=== PATIENT | male | born 1945 ===

== ENCOUNTER 2016-07-22 12:44 | Observation (INO) | payer MEDICARE ==
[2016-07-22 13:26] LABS: BASO % 0.4 % (0.0-2.0); EOS # 0.3 K/uL (0.0-0.7); EOS % 5.2 % (0.0-4.0); HEMATOCRIT 38.2 % (35.0-51.0); LYMPH # 0.8 K/uL (1.0-4.3); LYMPH % 12.4 % (20.0-40.0); MEAN CELL VOLUME 94.9 fL (80.0-94.0); MEAN CORPUSCULAR HGB CONC 32.7 g/dL (33.0-37.0); MEAN PLATELET VOLUME 11.1 fL (7.2-11.7); MONO # 0.5 K/uL (0.0-0.8); NRBC % 0.1 % (0.0-2.0); RED CELL DISTRIBUTION WIDTH 13.7 % (11.5-14.5); WHITE BLOOD COUNT 6.6 K/uL (4.8-10.8)
[2016-07-22 13:34] LABS: POTASSIUM 3.5 mmol/L (3.6-5.2)
[2016-07-22 13:36] LABS: ALB/GLOB RATIO 1.4 (1.0-2.1); BILIRUBIN,TOTAL 0.5 mg/dL (0.2-1.3); CALCIUM 10.8 mg/dl (8.6-10.4); TOTAL PROTEIN 7.1 g/dL (6.3-8.3)
--- NOTE | 2016-07-22 13:43 | RAD ---
PROCEDURE: CHEST RADIOGRAPH, 1 VIEW HISTORY: chest pain COMPARISON: None available. FINDINGS: LUNGS: Small heterogeneous opacities at the lung bases seen may represent atelectasis. PLEURA: No pneumothorax or pleural fluid seen. CARDIOVASCULAR: Normal. OSSEOUS STRUCTURES: No significant abnormalities. VISUALIZED UPPER ABDOMEN: Normal. OTHER FINDINGS: None. IMPRESSION: Small opacities at the lung bases may represent atelectasis. Otherwise no evidence of acute pulmonary disease.
[2016-07-22 13:47] LABS: TROPONIN I 0.027 ng/mL (0.00-0.120)
--- NOTE | 2016-07-22 14:05 | C.PDOC ---
History Of Present Illness 71 year old male presents to the ED after being sent by his cardiology, Dr. Qureshi, to be admitted for a cardiac cath tomorrow. Patient took a stress test approximately one week prior and failed and also has elevated creatinine. Patient must be cleared for cath and IV hydration thus prompting visit. Patient denies any other complaints at this time. Time Seen by Provider: 07/22/16 13:07 Chief Complaint (Nursing): Shortness Of Breath History Per: Patient History/Exam Limitations: no limitations Associated Symptoms: denies: Fever, Chills, Sweating Reports Recently: Treated By A Physician (hosiery repairer Dr. Qureshi one week prior ) Recent travel outside of the [place]: No Past Medical History Reviewed: Historical Data, Nursing Documentation, Vital Signs Vital Signs: Last Vital Signs Temp 97.9 F 07/22/16 13:02 Pulse 44 L 07/22/16 13:02 Resp 18 07/22/16 13:54 BP 134/52 L 07/22/16 13:02 Pulse Ox 95 07/22/16 18:56 - Medical History PMH: Diabetes, HTN Family History: States: No Known Family Hx - Social History Hx Alcohol Use: No Hx Substance Use: No Review Of Systems Constitutional: Negative for: Fever, Chills, Sweats Cardiovascular: Negative for: Chest Pain, Palpitations Respiratory: Negative for: Cough, Shortness of Breath Gastrointestinal: Negative for: Nausea, Vomiting, Abdominal Pain, Diarrhea Physical Exam - Physical Exam Appears: Non-toxic, No Acute Distress Skin: Warm, Dry Head: Atraumatic Oral Mucosa: Moist Neck: Normal ROM, Supple Chest: Symmetrical, No Deformity Cardiovascular: Other (Sinus bradycardia at 53 bpm with 1st degree AV block and frequent PVCs) Respiratory: No Rales, No Rhonchi, No Wheezing Gastrointestinal/Abdominal: Soft, No Tenderness, No Guarding, No Rebound Extremity: Normal ROM, No Tenderness Neurological/Psych: Oriented x3, Normal Speech, Normal Cognition ED Course And Treatment - Laboratory Results Result Diagrams: 07/22/16 13:21 07/22/16 13:21 ECG: Interpreted By Me, Viewed By Me ECG Rhythm: PVC (frequent) Interpretation Of ECG: Sinus bradycardia at 53 bpm with 1st degree AV block and frequent PVCs O2 Sat by Pulse Oximetry: 95 Medical Decision Making Medical Decision Making: Discussed with drs KhonanPaloma Plan obs for IV bicarb hydration and mucomyst prior to dye load Disposition - Disposition Disposition: HOSPITALIZED Disposition Time: 13:40 Condition: FAIR - Clinical Impression Clinical Impression: CRF (chronic renal failure), Diabetes - Scribe Statement The provider has reviewed the documentation as recorded by the Doloresibseb Cody All medical record entries made by the Doloresibseb were at my direction and personally dictated by me. I have reviewed the chart and agree that the record accurately reflects my personal performance of the history, physical exam, medical decision making, and the department course for this patient. I have also personally directed, reviewed, and agree with the discharge instructions and disposition.
--- NOTE | 2016-07-22 16:16 | CP.PCM.PN ---
Subjective - Date & Time of Evaluation Date of Evaluation: 07/22/16 Time of Evaluation: 16:15 - Subjective Subjective: consult dictated orders written Objective - Vital Signs/Intake and Output Vital Signs (last 24 hours): Temp Pulse Resp BP Pulse Ox 97.9 F 44 L 18 134/52 L 95 07/22/16 13:02 07/22/16 13:02 07/22/16 13:54 07/22/16 13:02 07/22/16 14:16 - Medications Medications: Current Medications Acetylcysteine (Acetylcysteine 20%) 6 ml PO Q12H JANET Sodium Bicarbonate 100 meq/ (Dextrose) 1,000 mls @ 80 mls/hr IV .[id number] JANET
[2016-07-22] MEDS ORDERED: Potassium Chloride 20 mEq ER Tab PO ONE (16:17)
--- NOTE | 2016-07-22 16:27 | CP.PCM.HP ---
<Singh Kearney - Last Filed: 07/22/16 16:24> History of Present Illness - History of Present Illness History of Present Illness: This is a 71 yo male with past medical hx CKD, HTN, DM, gout presenting from home after his blower and compressor assembler told him to come to hospital for cardiac cath. He had an echo done recently which he was told was abnormal and he will be having cardiac cath tomorrow. He has recently been experiencing dyspnea on exertion and he can only walk 1 block before becoming short of breath. He denies having heart disease in the past and has not had a cath or heart sx in the past. He has had issues with his kidneys for 10 years. He uses 2 pillows under his head at night. Also reports orthopnea, denies PND. He had a stress test done 2 months ago but does not know the results. PMH: DM, gout, HTN, CKD PSH: None FH: Mother- ND: age in the 60s Allergies: NKDA Social hx: No smoking. Former heavy drinker. No drugs. Born in [place]. Present on Admission - Present on Admission Any Indicators Present on Admission: No History of DVT/PE: No History of Uncontrolled Diabetes: No Urinary Catheter: No Decubitus Ulcer Present: No Review of Systems - Review of Systems All systems: reviewed and no additional remarkable complaints except Review of Systems: Negative except as stated in HPI. Past Patient History - Infectious Disease Hx of Infectious Diseases: None - Tetanus Immunizations Tetanus Immunization: Unknown - Past Medical History & Family History Past Medical History?: Yes Pertinent Family History: ND in family - Past Social History Smoking Status: Never Smoked Chewing Tobacco Use: No Cigar Use: No Alcohol: None Drugs: Denies Home Situation {Lives}: With Family Domestic Violence: Negative - CARDIAC Hx Hypertension: Yes - RENAL Other/Comment: Hx of renal insufficiency - ENDOCRINE/METABOLIC Hx Diabetes Mellitus Type 2: Yes - PSYCHIATRIC Hx Substance Use: No - SURGICAL HISTORY Other/Comment: bilateral leg surgery - ANESTHESIA Hx Anesthesia: Yes Hx Anesthesia Reactions: No Meds Home Medications: Home Medication List Medication Instructions Recorded Confirmed Type Aspirin [Aspirin Chewable] 81 mg PO DAILY 07/24/16 Rx Doxazosin [Cardura] 1 mg PO DAILY tab 07/24/16 Rx Insulin Human Regular [Novolin R] 0 unit SC ACHS unit 07/24/16 Rx Losartan [Cozaar] 50 mg PO DAILY tab 07/24/16 Rx Rosuvastatin Calcium 2.5 [Crestor] 2.5 mg PO HS #30 tab 07/24/16 Rx SITagliptin [Januvia] 25 mg PO DAILY tab 07/24/16 Rx Sevelamer Carbonate [Renvela] 800 mg PO TIDCC tab 07/24/16 Rx Torsemide [Demadex] 100 mg PO DAILY tab 07/24/16 Rx Allergies/Adverse Reactions: Allergies Allergy/AdvReac Type Severity Reaction Status Date / Time No Known Allergies Allergy Verified 07/22/16 13:09 Physical Exam - Constitutional Appears: Non-toxic, No Acute Distress - Head Exam Head Exam: ATRAUMATIC, NORMAL INSPECTION, NORMOCEPHALIC - Eye Exam Eye Exam: EOMI - ENT Exam ENT Exam: Mucous Membranes Moist - Neck Exam Neck exam: Positive for: Full Rom, Normal Inspection - Respiratory Exam Respiratory Exam: NORMAL BREATHING PATTERN. absent: Respiratory Distress - Cardiovascular Exam Cardiovascular Exam: +S1, +S2 - GI/Abdominal Exam GI & Abdominal Exam: Normal Bowel Sounds, Soft. absent: Tenderness - Extremities Exam Extremities exam: Positive for: full ROM, pedal edema Additional comments: B/L leg edema - Neurological Exam Neurological exam: Alert, Oriented x3 - Psychiatric Exam Psychiatric exam: Normal Affect, Normal Mood - Skin Skin Exam: Dry, Intact, Normal Color, Warm Results - Vital Signs Recent Vital Signs: Last Vital Signs Temp 97.9 F 07/22/16 13:02 Pulse 44 L 07/22/16 13:02 Resp 18 07/22/16 13:54 BP 134/52 L 07/22/16 13:02 Pulse Ox 95 07/22/16 14:16 - Labs Result Diagrams: 07/22/16 13:21 07/22/16 13:21 Assessment & Plan - Assessment and Plan (Free Text) Assessment: This is a 71 yo male with past medical hx of longstanding kidney disease, HTN, dyspnea on exertion, gout presenting for cardiac cath tomorrow//JUAN workup 1. JUAN f/u am labs f/u home meds f/u EKG f/u genie panel d dimer pending pro bnp pending CXR pa/lateral pending cardio consult. Dr. Snell. recs appreciated IC consult. Dr. Slaughter. recs appreciated 2. Chronic kidney disease -D5W with NA Bicarb -nephro consult. recs appreciated -strict I/O 3. Hx of DM -accuchecks -ACHS -f/u home meds f/u HGB a1c 4. hx of HTN -f/u lipid panel 5. hypokalemia -borderline -will replete with kdur 6. GI/DVT ppx -hold protonix for now -hold scds until clot ruled out discussed with Dr. Pollack. <Yvrose Pollack V - Last Filed: 07/29/16 12:35> Results - Vital Signs Recent Vital Signs: Last Vital Signs Temp 98.6 F 07/24/16 07:38 Pulse 60 07/24/16 13:48 Resp 20 07/24/16 07:38 BP 139/86 07/24/16 07:38 Pulse Ox 93 L 07/24/16 13:48 - Labs Result Diagrams: 07/24/16 08:10 07/24/16 07:40 Attending/Attestation - Attestation I have personally seen and examined this patient.: Yes I have fully participated in the care of the patient.: Yes I have reviewed all pertinent clinical information: Yes Notes (Text): This is late computer entry for 07/22/16. Patient seen, examined on Joe Bed 653A on 07/22/16 with at bedside. Patient reports he was sent in to the hospital by his blower and compressor assembler following an abnormal stress test in the office. Patient reports 3-4 month history of dyspnea on exertion wherein he is undergoing cardiac workup. Patient reports he has kidney problems for about 9 years now. Cardiology (Dr. Snell) discussed and aware patient in hospital; Dr. Qureshi's partner Cardiology (Dr. Slaughter) reason: for cardiac catherization Nephrology (Dr. Wallace) reason; chronic Kidney disease; discussed with Dr. Ashley in house; started D5W supplement with bicarbonate at 80cc/hr with Acetylcysteine 1200mg PO Q 12hours prior to cardiac catherization. Family provided home medication list to be reconciled. Held Sodium bicarbonate given in patient's IV fluids. Assessment/Plan 1. Dyspnea on Exertion; Abnormal Stress Test * Inpatient, telemetry * GENIE with EKG, Q 6-8hours X2 * Ordered for d dimer pending * Ordered for pro bnp pending * Ordered for CXR pa/lateral * Cardiology consult (Dr. Snell) recs appreciated * [facility] consult. Dr. Slaughter. recs appreciated * Aspirin 81mg PO daily * Crestor 2.5mg POqHS 2. Chronic kidney disease * D5W with Bicarbonate 80cc/hr * Renevela 800mg PO tidcc * Patient likely has stage [address] CKD per discussion with Dr. Ashley * Nephro consult (Dr. Wallace.Dr. Ashley)--> help appreciated 3. Diabetes type 2 * accuchecks AC and HS * f/u HGB a1c, lipid panel in AM * Januvia 25mg PO Daily * regular insulin sliding scale subq 4. Hypertension * Monitor vital signs * Home medications: Cadura 1mg PO daily, Cozaar 50mg PO daily, and [place]resmide 100mg PO daily 5. Hypokalemia * replete-->Kdur 20mg meq PO x1 given * Monitor and replete as necessary 6. GI/DVT ppx * hold protonix given patient to be scheduled for cardiac catherization * hold scds given patient has lower extremity swelling * Venous doppler b/l LE to rule out DVT
[2016-07-22] MEDS: Acetylcysteine 20% Inhal Soln (4ml) PO SCH (16:53)
--- NOTE | 2016-07-22 17:30 | CON ---
DATE: 07/22/2016 HISTORY OF PRESENT ILLNESS: This is a 71-year-old gentleman who is being seen in renal consultation because of marked and persistent azotemia. BUN is elevated at 80 with a creatinine of 3.0, giving hi m an MDRD clearance of 25 mL per minute. He recently had an outpatient stress test that was positive and he is scheduled for cardiac catheterization with Dr. Slaughter tomorrow. The consultation has been o btained to limit the possibility of contrast nephropathy and further management of the same. This 71-year-old gentleman is well known to me and was actually initially seen by me in 2003, followe d through 2012, and then because of insurance problems in 2013, my office recommended that he follow with Dr. Wallace, who has taken excellent care of him over the course of the last 3 years; indeed, when last seen by us, the MDRD clearance was about 30 and now 3 years later, it is only about 5 points lo wer at 25. It is not clear presently what his outpatient medications were but when last seen in our o ffice, she was on allopurinol 300, aspirin 81, ferrous sulfate once a day, Fosrenol 1000 with supper, furosemide 40 three times a day, Januvia 25, Lipitor 10, losartan 50, mag oxide 1, metoprolol 25, R envela t.i.d. with meals, sodium bicarbonate twice a day, and Zaroxolyn 2.5. For present medications, see intake sheet. Plan is to prophylax against contrast nephropathy using D5 half normal saline, 2 amps of bicarbonate at 80 mL an hour between today and tomorrow, in addition to Mucomyst 1200 mg b.i. d. This was reviewed with both the agriculture intern and attending physician. Previous office charts and hospital charts were reviewed. He had an admission to [facility] in 2005. He presented with a history of chronic renal failure with right knee arthritis and septic joint at that time, followed by Dr. Lang, the orthopedic surgeon, and Dr. Galindo in [facility] ultation. The BUN is 50, creatinine 2.1 at that time, GFR was about 34. In 2005, the serum creatini ne was 1.6. As noted, he has a complex past history and was initially seen by Dr. Pal in the office in 03/2003 at the request of Dr. Albert Hdz, his technical project lead, with a past history of diabetes for at least the last 15 years and now that has been over 25 years without known retinopathy. He has a history of sleep apnea, coronary artery disease with myocardial infarction in the past that was noted about 2 m onths prior to that initial visit in 2003. He has hypertension, hypertensive heart disease, hyperten sive renal disease, peptic ulcer disease, obesity and glaucoma. At initial presentation, the BUN was 43, creatinine 2.3. That was dating back to 02/2003. His 24-hour clearance was 62 mL per minute at t [facility] time. It is lower at this time. There was no prior history prior to that evaluation of kidney d isease in the past, but he did take Celebrex every other day for about 6 months prior to that initial evaluation denied any history of nephritis, nephrosis, lupus, rheumatoid arthritis, anasarca. He did report chronic lower extremity edema on and off over the years. It has decreased with diureti c therapy and no history of BPH. No vesicular urethral reflux, no chronic cystitis or pyelonephritis . He did have arthritis of the great toe, but denied any history of gout. He had a history of diabe maureen mellitus, glaucoma, hypertension, chronic anxiety disorder, for which he was on BuSpar. He has a history of diabetic related impotence, for which he could not take Viagra because he was on isosorbid e at that time. Further workup of his kidney disease showed a total protein level of only 105 mg. GF R initially back then was in the 60s. ADRIANA was negative. Sed rate was okay. Ultrasound showed high n ormal resistive indices in both kidneys, consistent with progressing chronic kidney disease. Bladder ultrasound was negative for any significant postvoid residual and he was relatively stable over the years with the above-mentioned medications that he had continued. He has secondary hyperparathyroidi sm, on Renagel and activated vitamin D compounds. He had hospitalization with edema and cellulitis o f lower extremities in 2000 and a [facility] admission for sleep apnea that had been diagnosed a [facility] in 2001. ALLERGIES: None known. SOCIAL HISTORY: Born in [place], [place]. He is disabled. He is . Denies any history of smoking o r alcohol use or abuse. He did drink more about 20 years ago, but since then, he has quit and there is no IV drug use or abuse. No HIV risk factors. He sleeps more than 8 hours a day. FAMILY HISTORY: Significant for coronary artery disease in the mother, who at 81, and hypertens ion in the dad, who at 84. Three children, one of whom is diabetic. Seven brothers and sister an d not sure about their history. REVIEW OF SYSTEMS: Rest of the 12-point review of systems was negative except as outlined above. PHYSICAL EXAMINATION: GENERAL: Shows a well-developed, well-nourished, mildly obese gentleman sitting on the edge of the ed, in no acute distress. HEAD: Normocephalic, atraumatic. EYES: PERRLA. EOMs full. Unable to visualize fundi. NECK: Supple. Neck veins flat . No bruit. Thyroid not enlarged Thorax symmetrical. LUNGS: Decreased breath sounds, but clear to percussion and auscultation. CARDIAC: PMI in the 6th intercostal space lateral to midclavicular line. A II to III/ systo lic murmur, no S3, no rub. ABDOMEN: Soft, nontender, no gross organomegaly, no mass, no bruit. EXTREMITIES: Trace edema. Pulses are equal and intact. NEUROLOGIC: Oriented to time, place, and person. Gross motor, sensory, coordination within normal l imits. ASSESSMENT AND PLAN: The patient is left handed, so I would save his right arm for arteriovenous fist perfecto access for dialysis in the future by placing a sign in his room for no IVs or vena punctures in t hat right arm. We will continue his other medications for metabolic bone disease as outlined above a nd the prophylaxis for contrast nephropathy as outlined. Dr. Wallace will follow with you. Thank you for involving me in your patient's care. Clif Ashley MD cc: [id number] TT: 07/22/2016 17:28:55 Confirmation # [id number] Dictation # [id number]
--- NOTE | 2016-07-22 17:52 | RAD ---
HISTORY: [place] COMPARISON: Comparison is made to the previous same-day exam. TECHNIQUE: Chest PA and lateral FINDINGS: LUNGS: There is consolidation or infiltrate at the right lower lung. There is a small opacity at the left lung base. PLEURA: No significant pleural effusion identified. No pneumothorax apparent. CARDIOVASCULAR: Normal. OSSEOUS STRUCTURES: No significant abnormalities. VISUALIZED UPPER ABDOMEN: Normal. OTHER FINDINGS: None. IMPRESSION: Suspicious for opacity at the right lower lobe. Small opacity at the left lung base. Correlate for pneumonia. If indicated further assessment by CT may be obtained
[2016-07-22] MEDS: Sodium Bicarbonate 8.4% 100 MEQ in Dextrose 5% In Water 900 ML IV SCH (18:50)
[2016-07-22 19:44] VITALS: RESP 20
[2016-07-22] MEDS ORDERED: (Lantus) Insulin Glargine, Recombinant SC SCH (19:45)
[2016-07-22] MEDS: (Novolin R) Insulin Human Regular 100 units/ml vial SC SCH (22:29)
[2016-07-22] MEDS: Rosuvastatin Calcium 2.5 mg Tab PO SCH (22:31)
[2016-07-23] MEDS: Acetylcysteine 20% Inhal Soln (4ml) PO SCH (02:45)
[2016-07-23 06:16] LABS: BASO % 0.4 % (0.0-2.0); EOS # 0.4 K/uL (0.0-0.7); EOS % 5.9 % (0.0-4.0); HEMATOCRIT 38.2 % (35.0-51.0); LYMPH % 13.9 % (20.0-40.0); MEAN PLATELET VOLUME 10.9 fL (7.2-11.7); MONO # 0.7 K/uL (0.0-0.8); MONO % 9.1 % (0.0-10.0); RED CELL DISTRIBUTION WIDTH 13.9 % (11.5-14.5); WHITE BLOOD COUNT 7.4 K/uL (4.8-10.8)
[2016-07-23 06:25] LABS: CHLORIDE 100 mmol/L (98-107)
[2016-07-23 06:26] LABS: POTASSIUM 3.3 mmol/L (3.6-5.2); SODIUM 142 mmol/L (132-148)
[2016-07-23 06:28] LABS: ALB/GLOB RATIO 1.2 (1.0-2.1); ALKALINE PHOSPHATASE 51 U/L (38-126); AST/SGOT 18 U/L (17-59); BILIRUBIN,TOTAL 0.6 mg/dL (0.2-1.3); BLOOD UREA NITROGEN 74 mg/dL (9-20); CARBON DIOXIDE 33 mmol/L (22-30); CHOLESTEROL 92 mg/dL (0-199); GFR AFRICAN-AMERICAN 27; GLUCOSE,RANDOM 106 mg/dL (75-110); TOTAL PROTEIN 6.4 g/dL (6.3-8.3)
[2016-07-23 06:29] LABS: ALT/SGPT 16 U/L (21-72); CALCIUM 10.1 mg/dl (8.6-10.4); MAGNESIUM 2.5 mg/dL (1.6-2.3); PHOSPHOROUS 3.6 mg/dL (2.5-4.5)
[2016-07-23 06:39] LABS: INR 1.1
[2016-07-23 06:57] LABS: THYROID STIMULATING HORMONE 1.34 mIU/L (0.46-4.68)
[2016-07-23] MEDS: Sodium Bicarbonate 8.4% 100 MEQ in Dextrose 5% In Water 900 ML IV SCH (10:10)
--- NOTE | 2016-07-23 10:16 | CP.PCM.CON ---
Addendum entered and electronically signed by Regla Roach DO 07/23/16 15:05 : Cath Tues 2:30pm NPO after midnight Original Note: <Regla Roach - Last Filed: 07/23/16 14:05> History of Present Illness - History of Present Illness History of Present Illness: PGY-I for Dr. Snell Cardiology consult: Abnormal stress test 71 year old male with PMH of HTN, 1st degree AV block, DM x 20 years, CKD stage 4, PUD, and gout presenting for cardiac evaluation prior to catherization. He had an abnormal stress test 1 week ago and was advised by his Hand Glass Cutter Dr. Qureshi to come to the hospital for catherization. Pt sleeps with 2 pillows and has dizziness with loss of balance sensation. SOB after walking 1-2 blocks. In the past, he denies major cardiac incidents. He denies prior IA or stroke. However, he states that 4 years ago he felt dizzy and was admitted to [facility] for 3 days, but does not know the outcome of his stay. On admission: EKG shows Sinus bradycardia at 53 bpm with 1st degree AV block and frequent PVCs ROS (+) orthopnea Denies chest pain, palpitations, syncopal episodes, weakness/tingling, HIGH, N/V/D /C, dysuria PMH: DM x 20 years Bradycardia 1st degree AV block HTN CKD, stage 4 Gout PUD Glaucoma PSH: denies FH: Mother - IA at 68 years old, HTN; Father - denies DM, HTN Allergies: NKDA Social: former drinker, quit 20 years ago used to drink 1 bottle of whiskey on weekends. lifetime nonsmoker denies illicit drug use. drinks 2 cups of coffee daily. Meds: ASA 81, Lipitor 10, losartan 50 torsemide 100 Januvia, lantus 15u Doxazosin Sevelamer, bicarb, uloric, parycalcitol gabapentin; Ultracet PRN Cardiology: Dr. Qureshi, Past Patient History - Infectious Disease Hx of Infectious Diseases: None - Tetanus Immunizations Tetanus Immunization: Unknown - Past Medical History & Family History Past Medical History?: Yes - Past Social History Smoking Status: Never Smoked - CARDIAC Hx Hypertension: Yes - PULMONARY Hx Respiratory Disorders: No - NEUROLOGICAL Hx Neurological Disorder: No - HEENT Hx HEENT Problems: No - RENAL Hx Chronic Kidney Disease: Yes Hx Renal Failure: Yes Other/Comment: Hx of renal insufficiency - ENDOCRINE/METABOLIC Hx Endocrine Disorders: Yes Hx Diabetes Mellitus Type 2: Yes - HEMATOLOGICAL/ONCOLOGICAL Hx Blood Disorders: No - INTEGUMENTARY Hx Dermatological Problems: No - MUSCULOSKELETAL/RHEUMATOLOGICAL Hx Musculoskeletal Disorders: Yes Hx Falls: No Hx Osteoarthritis: Yes Hx Rheumatoid Arthritis: Yes - GASTROINTESTINAL Hx Gastrointestinal Disorders: No - GENITOURINARY/GYNECOLOGICAL Hx Genitourinary Disorders: No - PSYCHIATRIC Hx Substance Use: No - SURGICAL HISTORY Hx Surgeries: No Other/Comment: bilateral leg surgery - ANESTHESIA Hx Anesthesia: No Hx Anesthesia Reactions: No Meds Allergies/Adverse Reactions: Allergies Allergy/AdvReac Type Severity Reaction Status Date / Time No Known Allergies Allergy Verified 07/22/16 13:09 - Medications Medications: Current Medications Acetylcysteine (Acetylcysteine 20%) 6 ml PO Q12H [facility] Last Admin: 07/23/16 02:45 Dose: 6 ml Aspirin (Aspirin Chewable) 81 mg PO DAILY [facility] Doxazosin Mesylate (Cardura) 1 mg PO DAILY [facility] Sodium Bicarbonate 100 meq/ (Dextrose) 1,000 mls @ 80 mls/hr IV .[id number] [facility] Last Admin: 07/22/16 18:50 Dose: 80 mls/hr Ceftriaxone Sodium 1 gm/ (Sodium Chloride) 100 mls @ 100 mls/hr IVPB Q12H [facility] Last Admin: 07/23/16 02:45 Dose: 100 mls/hr Azithromycin 500 mg/ Sodium (Chloride) 250 mls @ 250 mls/hr IVPB DAILY [facility] Insulin Human Regular (Novolin R) 0 unit SC ACHS [facility] PRN Reason: Protocol Last Admin: 07/22/16 22:29 Dose: Not Given Losartan Potassium (Cozaar) 50 mg PO DAILY [facility] Pneumococcal Polyvalent Vaccine (Pneumovax 23 Vaccine) 0.5 ml IM .ONCE ONE Stop: 07/24/16 10:01 Rosuvastatin Calcium (Crestor) 2.5 mg PO [facility] Last Admin: 07/22/16 22:31 Dose: Not Given Sevelamer Carbonate (Renvela) 800 mg PO TIDCC [facility] Sitagliptin Phosphate (Januvia) 25 mg PO DAILY [facility] Torsemide (Demadex) 100 mg PO DAILY [facility] Physical Exam - Constitutional Appears: Well - Head Exam Head Exam: ATRAUMATIC, NORMAL INSPECTION, NORMOCEPHALIC - Eye Exam Eye Exam: EOMI, Normal appearance - ENT Exam ENT Exam: Mucous Membranes Moist, Normal Exam - Neck Exam Neck exam: Positive for: Normal Inspection - Respiratory Exam Respiratory Exam: Clear to Auscultation Bilateral. absent: Rales, Rhonchi, Wheezes - Cardiovascular Exam Cardiovascular Exam: REGULAR RHYTHM, +S1 Additional comments: decreased heart sound - GI/Abdominal Exam GI & Abdominal Exam: Normal Bowel Sounds, Soft. absent: Distended, Firm, Guarding, Tenderness - Extremities Exam Extremities exam: Positive for: normal capillary refill, pedal edema (1+ pitting b/l), pedal pulses present. Negative for: calf tenderness - Back Exam Back exam: absent: CVA tenderness (L), CVA tenderness (R) - Neurological Exam Neurological exam: Alert, Oriented x3, Reflexes Normal - Psychiatric Exam Psychiatric exam: Normal Affect, Normal Mood - Skin Skin Exam: Dry, Normal Color Results - Vital Signs Recent Vital Signs: Last Vital Signs Temp 98.2 F 07/23/16 07:52 Pulse 57 L 07/23/16 07:52 Resp 20 07/23/16 07:52 BP 129/55 L 07/23/16 07:52 Pulse Ox 93 L 07/23/16 07:52 - Labs Result Diagrams: 07/23/16 06:06 07/23/16 06:06 Labs: Laboratory Results - last 24 hr 07/22/16 07/22/16 07/22/16 17:11 17:11 19:16 WBC RBC Hgb Hct MCV MCH MCHC RDW Plt Count MPV Neut % (Auto) Lymph % (Auto) [place] % (Auto) Eos % (Auto) Baso % (Auto) Neut # Lymph # [place] # Eos # Baso # PT INR APTT D-Dimer, Quantitative < 200 Sodium Potassium Chloride Carbon Dioxide Anion Gap BUN Creatinine Est GFR ( Amer) Est GFR (Non-Af Amer) POC Glucose (mg/dL) Random Glucose Hemoglobin A1c Calcium Phosphorus Magnesium Total Bilirubin AST ALT Alkaline Phosphatase Total Creatine Kinase 58 CK-MB (Mass) 1.13 Troponin I, Quant 0.0180 NT-Pro-B Natriuret Pep 1170 H Total Protein Albumin Globulin Albumin/Globulin Ratio Triglycerides Cholesterol LDL Cholesterol Direct HDL Cholesterol TSH 3rd Generation 07/22/16 07/23/16 07/23/16 21:15 01:10 06:06 WBC 7.4 RBC 4.06 L Hgb 12.6 Hct 38.2 MCV 94.0 MCH 31.0 MCHC 33.0 RDW 13.9 Plt Count 131 MPV 10.9 Neut % (Auto) 70.7 Lymph % (Auto) 13.9 L [place] % (Auto) 9.1 Eos % (Auto) 5.9 H Baso % (Auto) 0.4 Neut # 5.3 Lymph # 1.0 [place] # 0.7 Eos # 0.4 Baso # 0.0 PT INR APTT D-Dimer, Quantitative Sodium Potassium Chloride Carbon Dioxide Anion Gap BUN Creatinine Est GFR ( Amer) Est GFR (Non-Af Amer) POC Glucose (mg/dL) 158 H Random Glucose Hemoglobin A1c Calcium Phosphorus Magnesium Total Bilirubin AST ALT Alkaline Phosphatase Total Creatine Kinase 55 CK-MB (Mass) 1.01 Troponin I, Quant 0.0220 NT-Pro-B Natriuret Pep Total Protein Albumin Globulin Albumin/Globulin Ratio Triglycerides Cholesterol LDL Cholesterol Direct HDL Cholesterol TSH 3rd Generation 07/23/16 07/23/16 07/23/16 06:06 06:06 06:06 WBC RBC Hgb Hct MCV MCH MCHC RDW Plt Count MPV Neut % (Auto) Lymph % (Auto) [place] % (Auto) Eos % (Auto) Baso % (Auto) Neut # Lymph # [place] # Eos # Baso # PT 12.5 H INR 1.1 APTT 31 D-Dimer, Quantitative Sodium 142 Potassium 3.3 L Chloride 100 Carbon Dioxide 33 H Anion Gap 12 BUN 74 H Creatinine 2.8 H Est GFR ( Amer) 27 Est GFR (Non-Af Amer) 22 POC Glucose (mg/dL) Random Glucose 106 Hemoglobin A1c 6.5 Calcium 10.1 Phosphorus 3.6 Magnesium 2.5 H Total Bilirubin 0.6 AST 18 ALT 16 L D Alkaline Phosphatase 51 Total Creatine Kinase CK-MB (Mass) Troponin I, Quant NT-Pro-B Natriuret Pep Total Protein 6.4 Albumin 3.4 L Globulin 2.9 Albumin/Globulin Ratio 1.2 Triglycerides 107 Cholesterol 92 LDL Cholesterol Direct < 30 HDL Cholesterol 37 TSH 3rd Generation 1.34 07/23/16 06:26 WBC RBC Hgb Hct MCV MCH MCHC RDW Plt Count MPV Neut % (Auto) Lymph % (Auto) [place] % (Auto) Eos % (Auto) Baso % (Auto) Neut # Lymph # [place] # Eos # Baso # PT INR APTT D-Dimer, Quantitative Sodium Potassium Chloride Carbon Dioxide Anion Gap BUN Creatinine Est GFR ( Amer) Est GFR (Non-Af Amer) POC Glucose (mg/dL) 131 H Random Glucose Hemoglobin A1c Calcium Phosphorus Magnesium Total Bilirubin AST ALT Alkaline Phosphatase Total Creatine Kinase CK-MB (Mass) Troponin I, Quant NT-Pro-B Natriuret Pep Total Protein Albumin Globulin Albumin/Globulin Ratio Triglycerides Cholesterol LDL Cholesterol Direct HDL Cholesterol TSH 3rd Generation Assessment & Plan - Assessment and Plan (Free Text) Plan: 71 year old male with PMH of HTN, 1st degree AV block, DM x 20 years, CKD stage 4, PUD, and gout recently had an abnormal stress test admitted for cardiac catheterization. Abnormal stress test suspected of CAD - ASA 81, Lipitor 10, losartan 50 - senior living Goal BP should be 130/80 - lipid at goal Prevention of contrast nephropathy - Acetylcysteine 20% 6cc Q12, Bicarb 100 meq@80 CHF, suspected class 1-2, chronic HTN - pending cath and poss. ventriculogram - torsemide 100 - Doxazosin IDDM - pending A1C - Januvia, lantus 15u CKD, stage 4 - sevelamer, bicarb, - uloric, parycalcitol Diabetic neuropathy - gabapentin - Ultracet PRN S/R/D/w Dr. Snell - Date & Time Date: 07/23/16 Time: 10:24 <Santa Snell - Last Filed: 07/23/16 16:04> Meds - Medications Medications: Current Medications Acetylcysteine (Acetylcysteine 20%) 6 ml PO Q12H [facility] Last Admin: 07/23/16 02:45 Dose: 6 ml Aspirin (Aspirin Chewable) 81 mg PO DAILY [facility] Doxazosin Mesylate (Cardura) 1 mg PO DAILY [facility] Sodium Bicarbonate 100 meq/ (Dextrose) 1,000 mls @ 80 mls/hr IV .[id number] [facility] Last Admin: 07/23/16 10:10 Dose: 80 mls/hr Ceftriaxone Sodium 1 gm/ (Sodium Chloride) 100 mls @ 100 mls/hr IVPB Q12H [facility] Last Admin: 07/23/16 02:45 Dose: 100 mls/hr Azithromycin 500 mg/ Sodium (Chloride) 250 mls @ 250 mls/hr IVPB DAILY [facility] Last Admin: 07/23/16 10:40 Dose: 250 mls/hr Insulin Human Regular (Novolin R) 0 unit SC ACHS [facility] PRN Reason: Protocol Last Admin: 07/22/16 22:29 Dose: Not Given Losartan Potassium (Cozaar) 50 mg PO DAILY [facility] Pneumococcal Polyvalent Vaccine (Pneumovax 23 Vaccine) 0.5 ml IM .ONCE ONE Stop: 07/24/16 10:01 Rosuvastatin Calcium (Crestor) 2.5 mg PO HS [facility] Last Admin: 07/22/16 22:31 Dose: Not Given Sevelamer Carbonate (Renvela) 800 mg PO TIDCC [facility] Sitagliptin Phosphate (Januvia) 25 mg PO DAILY [facility] Torsemide (Demadex) 100 mg PO DAILY [facility] Results - Vital Signs Recent Vital Signs: Last Vital Signs Temp 98.2 F 07/23/16 07:52 Pulse 57 L 07/23/16 07:52 Resp 20 07/23/16 07:52 BP 129/55 L 07/23/16 07:52 Pulse Ox 93 L 07/23/16 07:52 - Labs Result Diagrams: 07/23/16 06:06 07/23/16 06:06 Labs: Laboratory Results - last 24 hr 07/22/16 07/22/16 07/22/16 17:11 17:11 19:16 WBC RBC Hgb Hct MCV MCH MCHC RDW Plt Count MPV Neut % (Auto) Lymph % (Auto) [place] % (Auto) Eos % (Auto) Baso % (Auto) Neut # Lymph # [place] # Eos # Baso # PT INR APTT D-Dimer, Quantitative < 200 Sodium Potassium Chloride Carbon Dioxide Anion Gap BUN Creatinine Est GFR ( Amer) Est GFR (Non-Af Amer) POC Glucose (mg/dL) Random Glucose Hemoglobin A1c Calcium Phosphorus Magnesium Total Bilirubin AST ALT Alkaline Phosphatase Total Creatine Kinase 58 CK-MB (Mass) 1.13 Troponin I, Quant 0.0180 NT-Pro-B Natriuret Pep 1170 H Total Protein Albumin Globulin Albumin/Globulin Ratio Triglycerides Cholesterol LDL Cholesterol Direct HDL Cholesterol TSH 3rd Generation 07/22/16 07/23/16 07/23/16 21:15 01:10 06:06 WBC 7.4 RBC 4.06 L Hgb 12.6 Hct 38.2 MCV 94.0 MCH 31.0 MCHC 33.0 RDW 13.9 Plt Count 131 MPV 10.9 Neut % (Auto) 70.7 Lymph % (Auto) 13.9 L [place] % (Auto) 9.1 Eos % (Auto) 5.9 H Baso % (Auto) 0.4 Neut # 5.3 Lymph # 1.0 [place] # 0.7 Eos # 0.4 Baso # 0.0 PT INR APTT D-Dimer, Quantitative Sodium Potassium Chloride Carbon Dioxide Anion Gap BUN Creatinine Est GFR ( Amer) Est GFR (Non-Af Amer) POC Glucose (mg/dL) 158 H Random Glucose Hemoglobin A1c Calcium Phosphorus Magnesium Total Bilirubin AST ALT Alkaline Phosphatase Total Creatine Kinase 55 CK-MB (Mass) 1.01 Troponin I, Quant 0.0220 NT-Pro-B Natriuret Pep Total Protein Albumin Globulin Albumin/Globulin Ratio Triglycerides Cholesterol LDL Cholesterol Direct HDL Cholesterol TSH 3rd Generation 07/23/16 07/23/16 07/23/16 06:06 06:06 06:06 WBC RBC Hgb Hct MCV MCH MCHC RDW Plt Count MPV Neut % (Auto) Lymph % (Auto) [place] % (Auto) Eos % (Auto) Baso % (Auto) Neut # Lymph # [place] # Eos # Baso # PT 12.5 H INR 1.1 APTT 31 D-Dimer, Quantitative Sodium 142 Potassium 3.3 L Chloride 100 Carbon Dioxide 33 H Anion Gap 12 BUN 74 H Creatinine 2.8 H Est GFR ( Amer) 27 Est GFR (Non-Af Amer) 22 POC Glucose (mg/dL) Random Glucose 106 Hemoglobin A1c 6.5 Calcium 10.1 Phosphorus 3.6 Magnesium 2.5 H Total Bilirubin 0.6 AST 18 ALT 16 L D Alkaline Phosphatase 51 Total Creatine Kinase CK-MB (Mass) Troponin I, Quant NT-Pro-B Natriuret Pep Total Protein 6.4 Albumin 3.4 L Globulin 2.9 Albumin/Globulin Ratio 1.2 Triglycerides 107 Cholesterol 92 LDL Cholesterol Direct < 30 HDL Cholesterol 37 TSH 3rd Generation 1.34 07/23/16 07/23/16 06:26 11:11 WBC RBC Hgb Hct MCV MCH MCHC RDW Plt Count MPV Neut % (Auto) Lymph % (Auto) [place] % (Auto) Eos % (Auto) Baso % (Auto) Neut # Lymph # [place] # Eos # Baso # PT INR APTT D-Dimer, Quantitative Sodium Potassium Chloride Carbon Dioxide Anion Gap BUN Creatinine Est GFR ( Amer) Est GFR (Non-Af Amer) POC Glucose (mg/dL) 131 H 114 H Random Glucose Hemoglobin A1c Calcium Phosphorus Magnesium Total Bilirubin AST ALT Alkaline Phosphatase Total Creatine Kinase CK-MB (Mass) Troponin I, Quant NT-Pro-B Natriuret Pep Total Protein Albumin Globulin Albumin/Globulin Ratio Triglycerides Cholesterol LDL Cholesterol Direct HDL Cholesterol TSH 3rd Generation Attending/Attestation - Attestation I have personally seen and examined this patient.: Yes I have fully participated in the care of the patient.: Yes I have reviewed all pertinent clinical information: Yes Notes (Text): 07/23/16 16:04 For cath Saturday. Continue hydration for renal
[2016-07-23] MEDS: Azithromycin 500 MG in Sodium Chloride 0.9% 250 ML IVPB SCH (10:40)
--- NOTE | 2016-07-23 15:45 | CP.PCM.PN ---
<JalenSoraya - Last Filed: 07/23/16 16:11> Subjective - Date & Time of Evaluation Date of Evaluation: 07/23/16 Time of Evaluation: 10:00 - Subjective Subjective: PGY1 Medicine note for Dr. Oh Patient seen and examined at bedside. Patient stated he was sent in for a cardiac cath by Dr. Qureshi because of an abnormal stress test that was done 2 months ago. He denied any chest pain but states he has shortness of breath on exertion and sleeps with two pillows at night. He also reported some bilateral leg swelling. He denied fever, chills, headache, dizziness, palpitations, cough , abdominal pain, nausea, vomiting, bowel/bladder complaints. He has been NPO overnight for his cath today. Objective - Vital Signs/Intake and Output Vital Signs (last 24 hours): Temp Pulse Resp BP Pulse Ox 98.2 F 57 L 20 129/55 L 93 L 07/23/16 07:52 07/23/16 07:52 07/23/16 07:52 07/23/16 07:52 07/23/16 07:52 Intake and Output: 07/23/16 07/23/16 06:59 18:59 Intake Total 790 Balance 790 - Medications Medications: Current Medications Acetylcysteine (Acetylcysteine 20%) 6 ml PO Q12H [facility] Last Admin: 07/23/16 02:45 Dose: 6 ml Aspirin (Aspirin Chewable) 81 mg PO DAILY [facility] Doxazosin Mesylate (Cardura) 1 mg PO DAILY [facility] Sodium Bicarbonate 100 meq/ (Dextrose) 1,000 mls @ 80 mls/hr IV .[id number] [facility] Last Admin: 07/23/16 10:10 Dose: 80 mls/hr Ceftriaxone Sodium 1 gm/ (Sodium Chloride) 100 mls @ 100 mls/hr IVPB Q12H [facility] Last Admin: 07/23/16 02:45 Dose: 100 mls/hr Azithromycin 500 mg/ Sodium (Chloride) 250 mls @ 250 mls/hr IVPB DAILY [facility] Last Admin: 07/23/16 10:40 Dose: 250 mls/hr Insulin Human Regular (Novolin R) 0 unit SC ACHS [facility] PRN Reason: Protocol Last Admin: 07/22/16 22:29 Dose: Not Given Losartan Potassium (Cozaar) 50 mg PO DAILY [facility] Pneumococcal Polyvalent Vaccine (Pneumovax 23 Vaccine) 0.5 ml IM .ONCE ONE Stop: 07/24/16 10:01 Rosuvastatin Calcium (Crestor) 2.5 mg PO HS [facility] Last Admin: 07/22/16 22:31 Dose: Not Given Sevelamer Carbonate (Renvela) 800 mg PO TIDCC [facility] Sitagliptin Phosphate (Januvia) 25 mg PO DAILY [facility] Torsemide (Demadex) 100 mg PO DAILY [facility] - Labs Labs: 07/23/16 06:06 07/23/16 06:06 PT 12.5 SECONDS (9.7-12.2) H 07/23/16 06:06 INR 1.1 07/23/16 06:06 APTT 31 SECONDS (21-34) 07/23/16 06:06 - Constitutional Appears: Non-toxic, No Acute Distress - Head Exam Head Exam: NORMAL INSPECTION - Eye Exam Eye Exam: Normal appearance. absent: Conjunctival injection, Scleral icterus Pupil Exam: NORMAL ACCOMODATION - ENT Exam ENT Exam: Mucous Membranes Moist - Neck Exam Neck Exam: Normal Inspection. absent: Tenderness - Respiratory Exam Respiratory Exam: Clear to Ausculation Bilateral, NORMAL BREATHING PATTERN. absent: Accessory Muscle Use, Rales, Rhonchi, Wheezes - Cardiovascular Exam Cardiovascular Exam: Bradycardia, +S1, +S2 - GI/Abdominal Exam GI & Abdominal Exam: Soft, Normal Bowel Sounds. absent: Tenderness - Extremities Exam Extremities Exam: Pedal Edema (b/l). absent: Normal Inspection - Back Exam Back Exam: NORMAL INSPECTION. absent: rash noted - Neurological Exam Neurological Exam: Alert, Awake, Oriented x3 - Psychiatric Exam Psychiatric exam: Normal Affect, Normal Mood - Skin Skin Exam: Dry, Intact, Normal Color, Warm Assessment and Plan - Assessment and Plan (Free Text) Assessment: 71 year old male with PMH of HTN, 1st degree AV block, DM x 20 years, CKD stage 4, PUD, and gout presenting for cardiac cath sent in by rubber stamp die inspector Plan: Dyspnea on exertion -EKG: sinus bradycardia with 1st degree AV block and frequent PVCs -Troponin 0.0180 --> 0.0220 -D-dimer: < 200 -LE dopplers b/l: negative -pro bnp: 1170 -CXR: opacity at R lower lobe and opacity at left lung base; correlate for pneumonia -Azithromycin 500mg IVP daily -Rocephin 1gm IVPB Q12 daily -patient for cardiac cath this AM -cardio consult. Dr. Snell. recs appreciated -IC consult. Dr. Slaughter. recs appreciated Chronic kidney disease -D5W with NA Bicarb -Actylesteine 20% 6cc Q12 -nephro consult. recs appreciated -Renvela 800mg PO tidcc -strict I/O CHF -suspected -Torsemide 100mg po daily -f/u echo Hx of DM -accuchecks -RISS -Januvia 25mg po daily -HgbA1c 6.5 Hx of HTN -Lipid panel WNL -ASA 81mg po daily -Cardura 1mg po daily -Cozaar 50mg po daily -Crestor 2.5mg po hs Hypokalemia -will replete with kdur GI/DVT ppx -hold protonix for now -SCDs c/i for b/l edema -NPO for cardiac cath -Heart healthy diet with mod consistent carb after cath Plan discussed with Dr. Althea Rao PGY1 <Markel Oh - Last Filed: 08/24/16 13:25> Objective - Vital Signs/Intake and Output Vital Signs (last 24 hours): Temp Pulse Resp BP Pulse Ox 98.6 F 60 20 139/86 93 L 07/24/16 07:38 07/24/16 13:48 07/24/16 07:38 07/24/16 07:38 07/24/16 13:48 - Labs Labs: 07/24/16 08:10 07/24/16 07:40 PT 12.5 SECONDS (9.7-12.2) H 07/23/16 06:06 INR 1.1 07/23/16 06:06 APTT 31 SECONDS (21-34) 07/23/16 06:06 Attending/Attestation - Attestation I have personally seen and examined this patient.: Yes I have fully participated in the care of the patient.: Yes I have reviewed all pertinent clinical information, including history, physical exam and plan: Yes Notes (Text): Patient Seen and examined with the resident. Agree with the resident's evaluation, assessment and plan. 71 year old male with PMH of HTN, 1st degree AV block, DM x 20 years, CKD stage 4, PUD, and gout presenting for cardiac cath sent in by rubber stamp die inspector Plan: Dyspnea on exertion Chronic kidney disease CHF -suspected
[2016-07-23] MEDS ORDERED: Midazolam 2 MG/2 ML VIAL ONE (15:55)
--- NOTE | 2016-07-23 16:52 | CP.PCM.PN ---
Subjective - Date & Time of Evaluation Date of Evaluation: 07/23/16 Time of Evaluation: 16:48 - Subjective Subjective: After d/w patient and family the consent was obtained Risks and benefits explained Approximately 37ml contrast used Will follow post cath renal recommendations Check labs in am After nephrology clearance patient can be discharged tomorrow Findings: Non Obstructive Coronaries Medical management Objective - Vital Signs/Intake and Output Vital Signs (last 24 hours): Temp Pulse Resp BP Pulse Ox 98.2 F 57 L 20 129/55 L 93 L 07/23/16 07:52 07/23/16 07:52 07/23/16 07:52 07/23/16 07:52 07/23/16 07:52 Intake and Output: 07/23/16 07/23/16 06:59 18:59 Intake Total 790 Balance 790 - Medications Medications: Current Medications Acetylcysteine (Acetylcysteine 20%) 6 ml PO Q12H [facility] Last Admin: 07/23/16 02:45 Dose: 6 ml Aspirin (Aspirin Chewable) 81 mg PO DAILY [facility] Doxazosin Mesylate (Cardura) 1 mg PO DAILY [facility] Sodium Bicarbonate 100 meq/ (Dextrose) 1,000 mls @ 80 mls/hr IV .[id number] [facility] Last Admin: 07/23/16 10:10 Dose: 80 mls/hr Ceftriaxone Sodium 1 gm/ (Sodium Chloride) 100 mls @ 100 mls/hr IVPB Q12H [facility] Last Admin: 07/23/16 02:45 Dose: 100 mls/hr Azithromycin 500 mg/ Sodium (Chloride) 250 mls @ 250 mls/hr IVPB DAILY [facility] Last Admin: 07/23/16 10:40 Dose: 250 mls/hr Insulin Human Regular (Novolin R) 0 unit SC ACHS [facility] PRN Reason: Protocol Last Admin: 07/22/16 22:29 Dose: Not Given Losartan Potassium (Cozaar) 50 mg PO DAILY [facility] Pneumococcal Polyvalent Vaccine (Pneumovax 23 Vaccine) 0.5 ml IM .ONCE ONE Stop: 07/24/16 10:01 Rosuvastatin Calcium (Crestor) 2.5 mg PO HS [facility] Last Admin: 07/22/16 22:31 Dose: Not Given Sevelamer Carbonate (Renvela) 800 mg PO TIDCC [facility] Sitagliptin Phosphate (Januvia) 25 mg PO DAILY [facility] Torsemide (Demadex) 100 mg PO DAILY [facility] - Labs Labs: 07/23/16 06:06 07/23/16 06:06 PT 12.5 SECONDS (9.7-12.2) H 07/23/16 06:06 INR 1.1 07/23/16 06:06 APTT 31 SECONDS (21-34) 07/23/16 06:06
[2016-07-23] MEDS: (Novolin R) Insulin Human Regular 100 units/ml vial SC SCH ×2 (18:36→21:42)
[2016-07-23] MEDS: Rosuvastatin Calcium 2.5 mg Tab PO SCH (21:43)
--- NOTE | 2016-07-23 23:58 | CARD ---
APPROVED REPORT EKG Measurement Heart [id number] PA [id number] <Conclusion> Sinus bradycardia with 1st degree AV block with frequent premature ventricular complexes Left axis deviation Low voltage QRS Inferior infarct, age undetermined Cannot rule out Anterior infarct, age undetermined Abnormal ECG
--- NOTE | 2016-07-24 00:19 | CP.PCM.PN ---
Subjective - Date & Time of Evaluation Date of Evaluation: 07/23/16 Time of Evaluation: 15:00 - Subjective Subjective: SEEN ON RENAL F/U SEEN IN CARDIAC DIRECTOR OF ANNUAL GIVING CASE D/W DR BRYANT WHO IS DOING C CATH [place] NOW PT WAS GIVEN IVF AND MUCOMIST DR BRYANT IS GOING TO USE A LESS NEPHROTOXIC CONTRAST Objective - Vital Signs/Intake and Output Vital Signs (last 24 hours): Temp Pulse Resp BP Pulse Ox 97.4 F L 55 L 20 162/78 H 95 07/23/16 18:10 07/23/16 21:09 07/23/16 18:10 07/23/16 18:10 07/23/16 18:30 Intake and Output: 07/23/16 07/24/16 18:59 06:59 Intake Total 960 Balance 960 - Medications Medications: Current Medications Acetylcysteine (Acetylcysteine 20%) 6 ml PO Q12H [facility] Last Admin: 07/23/16 02:45 Dose: 6 ml Aspirin (Aspirin Chewable) 81 mg PO DAILY [facility] Doxazosin Mesylate (Cardura) 1 mg PO DAILY [facility] Heparin Sodium (Porcine) (Heparin) 5,000 units SC Q8 [facility] Sodium Bicarbonate 100 meq/ (Dextrose) 1,000 mls @ 80 mls/hr IV .[id number] [facility] Last Admin: 07/23/16 10:10 Dose: 80 mls/hr Ceftriaxone Sodium 1 gm/ (Sodium Chloride) 100 mls @ 100 mls/hr IVPB Q12H [facility] Last Admin: 07/23/16 18:24 Dose: 100 mls/hr Azithromycin 500 mg/ Sodium (Chloride) 250 mls @ 250 mls/hr IVPB DAILY [facility] Last Admin: 07/23/16 10:40 Dose: 250 mls/hr Insulin Human Regular (Novolin R) 0 unit SC ACHS [facility] PRN Reason: Protocol Last Admin: 07/23/16 21:42 Dose: Not Given Losartan Potassium (Cozaar) 50 mg PO DAILY [facility] Pneumococcal Polyvalent Vaccine (Pneumovax 23 Vaccine) 0.5 ml IM .ONCE ONE Stop: 07/24/16 10:01 Rosuvastatin Calcium (Crestor) 2.5 mg PO HS [facility] Last Admin: 07/23/16 21:43 Dose: 2.5 mg Sevelamer Carbonate (Renvela) 800 mg PO TIDCC [facility] Last Admin: 07/23/16 18:23 Dose: 800 mg Sitagliptin Phosphate (Januvia) 25 mg PO DAILY [facility] - Labs Labs: 07/23/16 06:06 07/23/16 06:06 PT 12.5 SECONDS (9.7-12.2) H 07/23/16 06:06 INR 1.1 07/23/16 06:06 APTT 31 SECONDS (21-34) 07/23/16 06:06 Assessment and Plan - Assessment and Plan (Free Text) Assessment: CKD .. RENAL FUNCTION STABLE FOR C CATH NOW MULTIPLE CO MORBIDITIES WILL CHECK LYTES IN AM
[2016-07-24] MEDS: Sodium Bicarbonate 8.4% 100 MEQ in Dextrose 5% In Water 900 ML IV SCH ×2 (05:36→10:00)
--- NOTE | 2016-07-24 07:03 | CP.PCM.PN ---
Objective - Vital Signs/Intake and Output Vital Signs (last 24 hours): Temp Pulse Resp BP Pulse Ox 98.1 F 56 L 20 153/61 H 96 07/23/16 23:20 07/24/16 04:23 07/23/16 23:20 07/23/16 23:20 07/23/16 23:20 Intake and Output: 07/24/16 07/24/16 06:59 18:59 Intake Total 960 Output Total 550 Balance 410 - Medications Medications: Current Medications Acetylcysteine (Acetylcysteine 20%) 6 ml PO Q12H [facility] Last Admin: 07/23/16 02:45 Dose: 6 ml Aspirin (Aspirin Chewable) 81 mg PO DAILY [facility] Doxazosin Mesylate (Cardura) 1 mg PO DAILY [facility] Heparin Sodium (Porcine) (Heparin) 5,000 units SC Q8 [facility] Last Admin: 07/24/16 05:33 Dose: 5,000 units Sodium Bicarbonate 100 meq/ (Dextrose) 1,000 mls @ 80 mls/hr IV .[id number] [facility] Last Admin: 07/24/16 05:36 Dose: Not Given Ceftriaxone Sodium 1 gm/ (Sodium Chloride) 100 mls @ 100 mls/hr IVPB Q12H [facility] Last Admin: 07/24/16 01:50 Dose: 100 mls/hr Azithromycin 500 mg/ Sodium (Chloride) 250 mls @ 250 mls/hr IVPB DAILY [facility] Last Admin: 07/23/16 10:40 Dose: 250 mls/hr Insulin Human Regular (Novolin R) 0 unit SC ACHS [facility] PRN Reason: Protocol Last Admin: 07/23/16 21:42 Dose: Not Given Losartan Potassium (Cozaar) 50 mg PO DAILY [facility] Pneumococcal Polyvalent Vaccine (Pneumovax 23 Vaccine) 0.5 ml IM .ONCE ONE Stop: 07/24/16 10:01 Rosuvastatin Calcium (Crestor) 2.5 mg PO HS [facility] Last Admin: 07/23/16 21:43 Dose: 2.5 mg Sevelamer Carbonate (Renvela) 800 mg PO TIDCC [facility] Last Admin: 07/23/16 18:23 Dose: 800 mg Sitagliptin Phosphate (Januvia) 25 mg PO DAILY [facility] - Labs Labs: 07/23/16 06:06 07/23/16 06:06 PT 12.5 SECONDS (9.7-12.2) H 07/23/16 06:06 INR 1.1 07/23/16 06:06 APTT 31 SECONDS (21-34) 07/23/16 06:06
--- NOTE | 2016-07-24 07:11 | CARDCATH ---
PROCEDURE DATE: 07/23/2016 PROCEDURE: Left heart catheterization and coronary angiogram. CLINICAL INDICATIONS: 1. Shortness of breath. 2. Diabetes. 3. Chronic kidney disease stage IV. 4. Hyperlipidemia. 5. Obesity. 6. Abnormal stress test. REFERRING PHYSICIANS: 1. Dr. Gaurang Qureshi. 2. Dr. Santa Snell. 3. Dr. Wallace. PERFORMING PHYSICIAN: Dr. Elder Slaughter. PROCEDURE: After informed consent, patient was prepped and draped in the usual sterile fashion. Usi ng micropuncture technique, 6-Occitan sheath was introduced into right common femoral artery. Using u sual diagnostic catheter, left heart catheterization and coronary angiogram were performed. The lebron ent was given 37 mL of contrast for cardiac catheterization. All of the renal precautions were taken as per nephrology's recommendations. FINDINGS: 1. Left main coronary artery is patent. 2. Proximal and mid LAD are patent. Diagonal branches are patent. Distal LAD has some diffuse diab etic disease. 3. Left circumflex and obtuse marginal branches are patent. 4. Right coronary artery is dominant and patent. 5. LV end-diastolic pressure is . No LV angiogram was performed due to her kidney disease. CONCLUSION: 1. Nonobstructive coronaries. 2. Elevated LV end diastolic pressure of . Elder Slaughter MD cc: [id number] TT: 07/23/2016 18:04:35 la 07/24/2016 06:09:31
[2016-07-24] MEDS: (Novolin R) Insulin Human Regular 100 units/ml vial SC SCH ×2 (07:30→11:30)
[2016-07-24 08:02] LABS: BASO % 0.4 % (0.0-2.0); EOS # 0.4 K/uL (0.0-0.7); EOS % 4.3 % (0.0-4.0); HEMATOCRIT 40.7 % (35.0-51.0); LYMPH # 1.1 K/uL (1.0-4.3); LYMPH % 11.9 % (20.0-40.0); MEAN CORPUSCULAR HEMOGLOBIN 31.1 pg (27.0-31.0); MEAN CORPUSCULAR HGB CONC 32.8 g/dL (33.0-37.0); MEAN PLATELET VOLUME 11.5 fL (7.2-11.7); MONO # 0.7 K/uL (0.0-0.8); MONO % 7.8 % (0.0-10.0); RED CELL DISTRIBUTION WIDTH 13.5 % (11.5-14.5); WHITE BLOOD COUNT 8.9 K/uL (4.8-10.8)
[2016-07-24 08:11] VITALS: BP 139/86; TEMP 98.6
[2016-07-24 08:23] LABS: POTASSIUM 3.4 mmol/L (3.6-5.2)
[2016-07-24 08:26] LABS: ALB/GLOB RATIO 1.2 (1.0-2.1); BILIRUBIN,TOTAL 0.6 mg/dL (0.2-1.3); PHOSPHOROUS 2.7 mg/dL (2.5-4.5)
[2016-07-24 08:27] LABS: CALCIUM 9.8 mg/dl (8.6-10.4); MAGNESIUM 2.6 mg/dL (1.6-2.3)
[2016-07-24] MEDS ORDERED: Potassium Chloride 20 mEq ER Tab PO ONE ×2 (09:37→10:00)
--- NOTE | 2016-07-24 09:45 | CARD ---
APPROVED REPORT EKG Measurement Heart [id number] <Conclusion> Sinus bradycardia with 1st degree AV block with frequent premature ventricular complexes Left axis deviation Low voltage QRS Inferior infarct, age undetermined Cannot rule out Anteroseptal infarct, age undetermined Abnormal ECG
--- NOTE | 2016-07-24 09:58 | VASCLAB ---
PROCEDURE: Lower Extremity Venous Duplex Exam. HISTORY: leg swelling PRIORS: None. TECHNIQUE: Bilateral common femoral, femoral, popliteal and posterior tibial, peroneal and great saphenous veins were evaluated. Flow was assessed with color Doppler, compressibility, assessment of phasic flow and augmentation response. Report prepared by SELVIN Kirk, RVT FINDINGS: RIGHT: 1. Common Femoral Vein: 1.1. Compressibility - Fully compressible: Thrombus - None : Flow - Phasic: Augmentation -Normal: Reflux - None. 2. Femoral Vein: 2.1. Compressibility - Fully compressible: Thrombus - None : Flow - Phasic: Augmentation -Normal: Reflux - Severe. 3. Popliteal Vein: 3.1. Compressibility - Fully compressible: Thrombus - None : Flow - Phasic: Augmentation -Normal: Reflux - Severe. 4. Posterior Tibial Vein: 4.1. Compressibility - Fully compressible: Thrombus - None: Flow - Phasic: Augmentation -Normal: Reflux - None. 5. Peroneal Vein: 5.1. Compressibility - Fully compressible: Thrombus - None: Flow - Phasic: Augmentation -Normal: Reflux - Severe. 6. Great Saphenous Vein: 6.1. Compressibility - Fully compressible: Thrombus - None: Flow - Phasic: Augmentation - Normal: Reflux - None. LEFT: 1. Common Femoral Vein: 1.1. Compressibility - Fully compressible: Thrombus - None: Flow - Phasic: Augmentation -Normal: Reflux - None. 2. Femoral Vein: 2.1. Compressibility - Fully compressible: Thrombus - None: Flow - Phasic: Augmentation -Normal: Reflux - Severe. 3. Popliteal Vein: 3.1. Compressibility - Fully compressible: Thrombus - None : Flow - Phasic: Augmentation -Normal: Reflux - None. 4. Posterior Tibial Vein: 4.1. Compressibility - Fully compressible: Thrombus - None: Flow - Phasic: Augmentation -Normal: Reflux - None. 5. Peroneal Vein: 5.1. Compressibility - Fully compressible: Thrombus - None: Flow - Phasic: Augmentation -Normal: Reflux - None. 6. Great Saphenous Vein: 6.1. Compressibility - Fully compressible: Thrombus - None: Flow - Phasic: Augmentation - Normal: Reflux - None. OTHER FINDINGS: Right: Severe valvular incompetence of the right femoral, popliteal and peroneal veins. Anechoic vasculalized mass noted behind the right knee. Left: Severe valvular incompetence of the left femoral vein. IMPRESSION: Right: No evidence of deep or superficial vein thrombosis of the right lower extremity. Left: No evidence of deep or superficial vein thrombosis of the left lower extremity.
[2016-07-24] MEDS: Azithromycin 500 MG in Sodium Chloride 0.9% 250 ML IVPB SCH (10:00)
[2016-07-24] MEDS ORDERED: Pneumococcal 23-Valent Vaccine IM ONE (10:00)
--- NOTE | 2016-07-24 10:11 | CP.PCM.PN ---
<Regla Roach - Last Filed: 07/24/16 10:20> Subjective - Date & Time of Evaluation Date of Evaluation: 07/24/16 Time of Evaluation: 10:08 - Subjective Subjective: PGY-[address] Snell Pt seen and examined. No acute complaint per 10 point review. Objective - Vital Signs/Intake and Output Vital Signs (last 24 hours): Temp Pulse Resp BP Pulse Ox 98.6 F 58 L 20 139/86 98 07/24/16 07:38 07/24/16 08:20 07/24/16 07:38 07/24/16 07:38 07/24/16 07:38 Intake and Output: 07/24/16 07/24/16 06:59 18:59 Intake Total 1860 Output Total 550 Balance 1310 - Medications Medications: Current Medications Acetylcysteine (Acetylcysteine 20%) 6 ml PO Q12H [facility] Last Admin: 07/23/16 02:45 Dose: 6 ml Aspirin (Aspirin Chewable) 81 mg PO DAILY [facility] Last Admin: 07/24/16 09:34 Dose: 81 mg Doxazosin Mesylate (Cardura) 1 mg PO DAILY [facility] Heparin Sodium (Porcine) (Heparin) 5,000 units SC Q8 [facility] Last Admin: 07/24/16 05:33 Dose: 5,000 units Sodium Bicarbonate 100 meq/ (Dextrose) 1,000 mls @ 80 mls/hr IV .[id number] [facility] Last Admin: 07/24/16 10:00 Dose: 80 mls/hr Ceftriaxone Sodium 1 gm/ (Sodium Chloride) 100 mls @ 100 mls/hr IVPB Q12H [facility] Last Admin: 07/24/16 01:50 Dose: 100 mls/hr Azithromycin 500 mg/ Sodium (Chloride) 250 mls @ 250 mls/hr IVPB DAILY [facility] Last Admin: 07/23/16 10:40 Dose: 250 mls/hr Insulin Human Regular (Novolin R) 0 unit SC ACHS [facility] PRN Reason: Protocol Last Admin: 07/23/16 21:42 Dose: Not Given Losartan Potassium (Cozaar) 50 mg PO DAILY [facility] Last Admin: 07/24/16 09:34 Dose: 50 mg Rosuvastatin Calcium (Crestor) 2.5 mg PO HS [facility] Last Admin: 07/23/16 21:43 Dose: 2.5 mg Sevelamer Carbonate (Renvela) 800 mg PO TIDCC [facility] Last Admin: 07/24/16 09:34 Dose: 800 mg Sitagliptin Phosphate (Januvia) 25 mg PO DAILY [facility] Last Admin: 07/24/16 09:33 Dose: 25 mg - Labs Labs: 07/24/16 08:10 07/24/16 07:40 PT 12.5 SECONDS (9.7-12.2) H 07/23/16 06:06 INR 1.1 07/23/16 06:06 APTT 31 SECONDS (21-34) 07/23/16 06:06 - Constitutional Appears: No Acute Distress - Head Exam Head Exam: ATRAUMATIC, NORMOCEPHALIC - Eye Exam Eye Exam: EOMI, Normal appearance - ENT Exam ENT Exam: Mucous Membranes Moist, Normal Exam - Respiratory Exam Respiratory Exam: Clear to Ausculation Bilateral, NORMAL BREATHING PATTERN. absent: Rales, Rhonchi, Wheezes - Cardiovascular Exam Cardiovascular Exam: REGULAR RHYTHM, +S1, +S2, Murmur (grade 2 systolic murmur heard best at upper sternal border) - GI/Abdominal Exam GI & Abdominal Exam: Soft, Normal Bowel Sounds. absent: Tenderness - Extremities Exam Extremities Exam: Normal Capillary Refill. absent: Pedal Edema - Back Exam Back Exam: absent: CVA tenderness (L), CVA tenderness (R) - Neurological Exam Neurological Exam: Alert, Awake, Normal Gait, Oriented x3 - Psychiatric Exam Psychiatric exam: Normal Affect, Normal Mood - Skin Skin Exam: Dry, Warm Assessment and Plan - Assessment and Plan (Free Text) Plan: 71 year old male with PMH of HTN, 1st degree AV block, DM x 20 years, LEA, CKD stage 4, PUD, and gout recently had an abnormal stress test admitted for cardiac catheterization. CHF, suspected class 1-2, chronic Valvular dysfunction, suspected HTN - Pending echocardiogram - torsemide 100 - Doxazosin Abnormal stress test s/p Cardiac catheterization (07/23/16) Diffuse artherosclerotoc disease of distal LAD - RCA dominant - ASA 81, crestor 2.5, losartan 50 - intermodal dispatcher Goal BP should be 130/80 - lipid at goal - continue CV risk reduction, diet and exercise Prevention of contrast nephropathy - only 37cc contrast use and no ventriculogram - Acetylcysteine 20% 6cc Q12, Bicarb 100 meq@80 Hx LEA - Bipap HS - Pulm consult IDDM, controlled - A1C 6.5 - Januvia, lantus 15u CKD, stage 4 - sevelamer, bicarb, - uloric, parycalcitol Diabetic neuropathy - gabapentin - Ultracet PRN DVT prophylasix - heparin SC Disposition - follow up with Dr. Snell in 2 weeks after discharge - follow up with manager office in 1-2 week for LEA S/R/D/w Dr. Snell <Santa Snell A - Last Filed: 07/24/16 16:21> Objective - Vital Signs/Intake and Output Vital Signs (last 24 hours): Temp Pulse Resp BP Pulse Ox 98.6 F 60 20 139/86 93 L 07/24/16 07:38 07/24/16 13:48 07/24/16 07:38 07/24/16 07:38 07/24/16 13:48 Intake and Output: 07/24/16 07/24/16 06:59 18:59 Intake Total 1860 Output Total 550 Balance 1310 - Labs Labs: 07/24/16 08:10 07/24/16 07:40 PT 12.5 SECONDS (9.7-12.2) H 07/23/16 06:06 INR 1.1 07/23/16 06:06 APTT 31 SECONDS (21-34) 07/23/16 06:06 Attending/Attestation - Attestation I have personally seen and examined this patient.: No I have fully participated in the care of the patient.: Yes I have reviewed all pertinent clinical information, including history, physical exam and plan: Yes Notes (Text): 07/24/16 16:21 Pt was discharged follow up with Dr. Qureshi
--- NOTE | 2016-07-24 10:37 | CP.PCM.CON ---
History of Present Illness - History of Present Illness History of Present Illness: Reason for consultation: History of sleep apnea 71 year old male with PMH of HTN, 1st degree AV block, DM x 20 years, CKD stage 4, PUD, and gout presenting for cardiac evaluation and had an abnormal stress test 1 week ago and was advised by his Release Of Information Specialist Dr. Qureshi to come to the hospital for catherization. Pt sleeps with 2 pillows and has dizziness with loss of balance sensation. SOB after walking 1-2 blocks. Patient also complaining of nocturnal snoring, frequent awakening at night and feels tired and sleepy during the daytime. Patient states he had sleep study done a few years ago but was never prescribed CPAP. PMH: DM x 20 years, Bradycardia 1st degree AV block, HTN, CKD, stage 4, Gout, PUD,Glaucoma PSH: denies FH: Mother - [place] at 68 years old, HTN; Father - denies DM, HTN Allergies: NKDA Social: former drinker, quit 20 years ago used to drink 1 bottle of whiskey on weekends. lifetime nonsmoker denies illicit drug use. drinks 2 cups of coffee daily. Review of Systems - Review of Systems All systems: reviewed and no additional remarkable complaints except (Dyspnea on exertion, nocturnal snoring and feeling tired and sleepy during the daytime) Past Patient History - Infectious Disease Hx of Infectious Diseases: None - Tetanus Immunizations Tetanus Immunization: Unknown - Past Medical History & Family History Past Medical History?: Yes - Past Social History Smoking Status: Former Smoker - CARDIAC Hx Hypertension: Yes - PULMONARY Hx Respiratory Disorders: No - NEUROLOGICAL Hx Neurological Disorder: No - HEENT Hx HEENT Problems: No - RENAL Hx Chronic Kidney Disease: Yes Hx Renal Failure: Yes Other/Comment: Hx of renal insufficiency - ENDOCRINE/METABOLIC Hx Endocrine Disorders: Yes Hx Diabetes Mellitus Type 2: Yes - HEMATOLOGICAL/ONCOLOGICAL Hx Blood Disorders: No - INTEGUMENTARY Hx Dermatological Problems: No - MUSCULOSKELETAL/RHEUMATOLOGICAL Hx Musculoskeletal Disorders: Yes Hx Falls: No Hx Osteoarthritis: Yes Hx Rheumatoid Arthritis: Yes - GASTROINTESTINAL Hx Gastrointestinal Disorders: No - GENITOURINARY/GYNECOLOGICAL Hx Genitourinary Disorders: No - PSYCHIATRIC Hx Substance Use: No - SURGICAL HISTORY Hx Surgeries: No Other/Comment: bilateral leg surgery - ANESTHESIA Hx Anesthesia: No Hx Anesthesia Reactions: No Meds Allergies/Adverse Reactions: Allergies Allergy/AdvReac Type Severity Reaction Status Date / Time No Known Allergies Allergy Verified 07/22/16 13:09 - Medications Medications: Current Medications Acetylcysteine (Acetylcysteine 20%) 6 ml PO Q12H [facility] Last Admin: 07/23/16 02:45 Dose: 6 ml Aspirin (Aspirin Chewable) 81 mg PO DAILY [facility] Last Admin: 07/24/16 09:34 Dose: 81 mg Doxazosin Mesylate (Cardura) 1 mg PO DAILY [facility] Heparin Sodium (Porcine) (Heparin) 5,000 units SC Q8 [facility] Last Admin: 07/24/16 05:33 Dose: 5,000 units Sodium Bicarbonate 100 meq/ (Dextrose) 1,000 mls @ 80 mls/hr IV .[id number] [facility] Last Admin: 07/24/16 10:00 Dose: 80 mls/hr Ceftriaxone Sodium 1 gm/ (Sodium Chloride) 100 mls @ 100 mls/hr IVPB Q12H [facility] Last Admin: 07/24/16 01:50 Dose: 100 mls/hr Azithromycin 500 mg/ Sodium (Chloride) 250 mls @ 250 mls/hr IVPB DAILY [facility] Last Admin: 07/23/16 10:40 Dose: 250 mls/hr Insulin Human Regular (Novolin R) 0 unit SC ACHS [facility] PRN Reason: Protocol Last Admin: 07/23/16 21:42 Dose: Not Given Losartan Potassium (Cozaar) 50 mg PO DAILY [facility] Last Admin: 07/24/16 09:34 Dose: 50 mg Rosuvastatin Calcium (Crestor) 2.5 mg PO HS [facility] Last Admin: 07/23/16 21:43 Dose: 2.5 mg Sevelamer Carbonate (Renvela) 800 mg PO TIDCC [facility] Last Admin: 07/24/16 09:34 Dose: 800 mg Sitagliptin Phosphate (Januvia) 25 mg PO DAILY [facility] Last Admin: 07/24/16 09:33 Dose: 25 mg Physical Exam - Head Exam Head Exam: ATRAUMATIC, NORMOCEPHALIC - Eye Exam Eye Exam: Normal appearance - ENT Exam ENT Exam: Mucous Membranes Moist - Neck Exam Neck exam: Positive for: Normal Inspection - Respiratory Exam Respiratory Exam: Clear to Auscultation Bilateral - Cardiovascular Exam Cardiovascular Exam: REGULAR RHYTHM - GI/Abdominal Exam GI & Abdominal Exam: Normal Bowel Sounds, Soft - Extremities Exam Extremities exam: Positive for: normal inspection - Neurological Exam Neurological exam: Alert, Oriented x3 Results - Vital Signs Recent Vital Signs: Last Vital Signs Temp 98.6 F 07/24/16 07:38 Pulse 58 L 07/24/16 08:20 Resp 20 07/24/16 07:38 BP 139/86 07/24/16 07:38 Pulse Ox 98 07/24/16 07:38 - Labs Result Diagrams: 07/24/16 08:10 07/24/16 07:40 Labs: Laboratory Results - last 24 hr 07/23/16 07/23/16 07/23/16 11:11 18:35 21:41 WBC RBC Hgb Hct MCV MCH MCHC RDW Plt Count MPV Neut % (Auto) Lymph % (Auto) [place] % (Auto) Eos % (Auto) Baso % (Auto) Neut # Lymph # [place] # Eos # Baso # Sodium Potassium Chloride Carbon Dioxide Anion Gap BUN Creatinine Est GFR ( Amer) Est GFR (Non-Af Amer) POC Glucose (mg/dL) 114 H 95 193 H Random Glucose Calcium Phosphorus Magnesium Total Bilirubin AST ALT Alkaline Phosphatase Total Protein Albumin Globulin Albumin/Globulin Ratio 07/24/16 07/24/16 07/24/16 06:25 07:40 08:10 WBC 8.9 RBC 4.28 L Hgb 13.3 Hct 40.7 MCV 95.0 H MCH 31.1 H MCHC 32.8 L RDW 13.5 Plt Count 155 MPV 11.5 Neut % (Auto) 75.6 H Lymph % (Auto) 11.9 L [place] % (Auto) 7.8 Eos % (Auto) 4.3 H Baso % (Auto) 0.4 Neut # 6.7 Lymph # 1.1 [place] # 0.7 Eos # 0.4 Baso # 0.0 Sodium 145 Potassium 3.4 L Chloride 102 Carbon Dioxide 35 H Anion Gap 11 BUN 58 H Creatinine 2.6 H Est GFR ( Amer) 29 Est GFR (Non-Af Amer) 24 POC Glucose (mg/dL) 115 H Random Glucose 108 Calcium 9.8 Phosphorus 2.7 Magnesium 2.6 H Total Bilirubin 0.6 AST 25 ALT 18 L Alkaline Phosphatase 67 Total Protein 7.0 Albumin 3.9 Globulin 3.1 Albumin/Globulin Ratio 1.2 Assessment & Plan (1) LEA (obstructive sleep apnea) Status: Acute Comment: CPAP is recommended. Patient advised to repeat sleep STUDY (2) CRF (chronic renal failure) Status: Acute
--- NOTE | 2016-07-24 13:30 | CP.PCM.DIS ---
<Soraya Rao - Last Filed: 07/30/16 16:12> Provider - Provider Date of Admission: 07/22/16 13:48 Attending physician: Markel Oh MD Primary care physician: Dr. Willard Consults: Dr. Slaughter cardiology Dr. Snell cardiology Dr. Wallace nephrology Time Spent in preparation of Discharge (in minutes): 45 Hospital Course - Lab Results Lab Results: Most Recent Lab Values WBC 8.9 K/uL (4.8-10.8) 07/24/16 08:10 RBC 4.28 Mil/uL (4.40-5.90) L 07/24/16 08:10 Hgb 13.3 g/dL (12.0-18.0) 07/24/16 08:10 Hct 40.7 % (35.0-51.0) 07/24/16 08:10 MCV 95.0 fL (80.0-94.0) H 07/24/16 08:10 MCH 31.1 pg (27.0-31.0) H 07/24/16 08:10 MCHC 32.8 g/dL (33.0-37.0) L 07/24/16 08:10 RDW 13.5 % (11.5-14.5) 07/24/16 08:10 Plt Count 155 K/uL (130-400) 07/24/16 08:10 MPV 11.5 fL (7.2-11.7) 07/24/16 08:10 Neut % (Auto) 75.6 % (50.0-75.0) H 07/24/16 08:10 Lymph % (Auto) 11.9 % (20.0-40.0) L 07/24/16 08:10 [place] % (Auto) 7.8 % (0.0-10.0) 07/24/16 08:10 Eos % (Auto) 4.3 % (0.0-4.0) H 07/24/16 08:10 Baso % (Auto) 0.4 % (0.0-2.0) 07/24/16 08:10 Neut # 6.7 K/uL (1.8-7.0) 07/24/16 08:10 Lymph # 1.1 K/uL (1.0-4.3) 07/24/16 08:10 [place] # 0.7 K/uL (0.0-0.8) 07/24/16 08:10 Eos # 0.4 K/uL (0.0-0.7) 07/24/16 08:10 Baso # 0.0 K/uL (0.0-0.2) 07/24/16 08:10 PT 12.5 SECONDS (9.7-12.2) H 07/23/16 06:06 INR 1.1 07/23/16 06:06 APTT 31 SECONDS (21-34) 07/23/16 06:06 D-Dimer, Quantitative < 200 ng/mlDDU (0-243) 07/22/16 17:11 Sodium 145 mmol/L (132-148) 07/24/16 07:40 Potassium 3.4 mmol/L (3.6-5.2) L 07/24/16 07:40 Chloride 102 mmol/L (98-107) 07/24/16 07:40 Carbon Dioxide 35 mmol/L (22-30) H 07/24/16 07:40 Anion Gap 11 (10-20) 07/24/16 07:40 BUN 58 mg/dL (9-20) H 07/24/16 07:40 Creatinine 2.6 MG/DL (0.8-1.5) H 07/24/16 07:40 Est GFR ( Amer) 29 07/24/16 07:40 Est GFR (Non-Af Amer) 24 07/24/16 07:40 POC Glucose (mg/dL) 169 mg/dL (65-110) H 07/24/16 11:36 Random Glucose 108 mg/dL (75-110) 07/24/16 07:40 Hemoglobin A1c 6.5 % (4.2-6.5) 07/23/16 06:06 Calcium 9.8 mg/dl (8.6-10.4) 07/24/16 07:40 Phosphorus 2.7 mg/dL (2.5-4.5) 07/24/16 07:40 Magnesium 2.6 mg/dL (1.6-2.3) H 07/24/16 07:40 Total Bilirubin 0.6 mg/dL (0.2-1.3) 07/24/16 07:40 AST 25 U/L (17-59) 07/24/16 07:40 ALT 18 U/L (21-72) L 07/24/16 07:40 Alkaline Phosphatase 67 U/L (38-126) 07/24/16 07:40 Total Creatine Kinase 55 U/L (55-170) 07/23/16 01:10 CK-MB (Mass) 1.01 ng/mL (0.0-3.38) 07/23/16 01:10 Troponin I 0.0270 ng/mL (0.00-0.120) 07/22/16 13:21 Troponin I, Quant 0.0220 ng/mL (0.00-0.120) 07/23/16 01:10 NT-Pro-B Natriuret Pep 1170 pg/mL (0-900) H 07/22/16 17:11 Total Protein 7.0 g/dL (6.3-8.3) 07/24/16 07:40 Albumin 3.9 g/dL (3.5-5.0) 07/24/16 07:40 Globulin 3.1 gm/dL (2.2-3.9) 07/24/16 07:40 Albumin/Globulin Ratio 1.2 (1.0-2.1) 07/24/16 07:40 Triglycerides 107 mg/dL (0-149) 07/23/16 06:06 Cholesterol 92 mg/dL (0-199) 07/23/16 06:06 LDL Cholesterol Direct < 30 mg/dL (0-129) 07/23/16 06:06 HDL Cholesterol 37 mg/dL (30-70) 07/23/16 06:06 TSH 3rd Generation 1.34 mIU/L (0.46-4.68) 07/23/16 06:06 - Hospital Course Hospital Course: Upon Admission: 71 yo male with past medical hx CKD, HTN, DM, gout sent by industrial nurse for cardiac cath. He had an abnormal stress test 1 week ago and was advised by his industrial nurse Dr. Qureshi to come to the hospital for catherization. Pt sleeps with 2 pillows and has dizziness with loss of balance sensation. He admitted to [facility] after walking 1-2 blocks. In the past, he denied major cardiac incidents and denied prior MS or stroke. Patient admitted to TELE. Dr. Snell and Dr. Slaughter cardiology were consulted. EKG showed sinus bradycardia with 1st degree AV block and frequent PVCs. LE dopplers b/l were negative. As patient had CATHLEEN on CKD, Dr. Wallace nephrology was consulted. Patient had a cardiac cath that showed nonobstructive coronaries and an Echo that showed aortic stenosis, normal LV, and an EF 55%. On day of discharge patient was deemed medically stable for discharge. Upon Discharge: Patient stable for discharge home as per hospitalist Dr. Oh, cardiology Dr. Snell and Dr. Slaughter, nephrology Dr. Wallace, and pulmonology Dr. Lobato Patient to resume all home medications. Patient to additionally take new medication as prescribed: -Crestor 2.5mg po qhs Disp#30 Patient to follow up with PMD Dr. Willard within 7 days. Patient to also follow up with Cardiology within 10 days for results of echocardiogram. Patient to also follow up with Nephrology Dr. Abraham on Tuesday 07/25 at 4:00pm for repeat labs Patient to also follow up with Pulmonology within 2 weeks for a repeat sleep study and has been recommended to continue using CPAP at night. If symptoms persist or worsen patient to visit ER immediately. Instructions discussed in detail with patient who understands and agrees. Discharge Exam - Head Exam Head Exam: ATRAUMATIC, NORMAL INSPECTION, NORMOCEPHALIC - Eye Exam Eye Exam: EOMI, Normal appearance, PERRL. absent: Conjunctival injection, Scleral icterus Pupil Exam: NORMAL ACCOMODATION - ENT Exam ENT Exam: Mucous Membranes Moist - Neck Exam Neck exam: Full Rom, Normal Inspection - Respiratory Exam Respiratory Exam: Decreased Breath Sounds (secondary to body habitus), Clear to PA & Lateral, NORMAL BREATHING PATTERN, UNREMARKABLE. absent: Rales, Rhonchi, Wheezes - Cardiovascular Exam Cardiovascular Exam: Bradycardia, REGULAR RHYTHM, +S1, +S2 - GI/Abdominal Exam GI & Abdominal Exam: Normal Bowel Sounds, Soft. absent: Tenderness - Rectal Exam Rectal Exam: Deferred - Extremities Exam Extremities exam: normal capillary refill, pedal edema - Back Exam Back exam: NORMAL INSPECTION. absent: rash noted, tenderness - Neurological Exam Neurological exam: Alert, Normal Gait, Oriented x3 - Psychiatric Exam Psychiatric exam: Normal Affect, Normal Mood - Skin Skin Exam: Dry, Intact, Normal Color, Warm Discharge Plan - Discharge Medications Prescriptions: Rosuvastatin Calcium 2.5 [Crestor] 2.5 mg PO HS #30 tab - Follow Up Plan Condition: FAIR Disposition: HOME/ ROUTINE Instructions: Rosuvastatin (By mouth), Left Heart Catheterization (DC), Sleep Apnea (DC), Acute Kidney Injury (DC), Renal Failure Diet (DC), Diabetic Foot Care (DC), Diabetes Mellitus Type 2 in Adults (DC), Basic Carbohydrate Counting (DC), Meal Planning with the Plate Method (DC), Meal Planning with Diabetes Exchanges (DC) Additional Instructions: Patient stable for discharge as per hospitalist Dr. Oh, cardiology Dr. Snell and Dr. Slaughter, nephrology Dr. Wallace, and pulmonology Dr. Lobato Patient to resume all home medications. Patient to additionally take new medication as prescribed: -Crestor 2.5mg po qhs Disp#30 Patient to follow up with PMD Dr. Willard within 7 days. Patient to also follow up with Cardiology within 10 days for results of echocardiogram. Patient to also follow up with Nephrology Dr. Wallace on Tuesday 07/25 at 4:00pm for repeat labs Patient to also follow up with Pulmonology within 2 weeks for a repeat sleep study and has been recommended to continue using CPAP at night. If symptoms persist or worsen patient to visit ER immediately. Instructions discussed in detail with patient who understands and agrees. Referrals: Ivan Lobato MD [Staff Provider] - Santa Snell MD [Staff Provider] - El Wallace MD [Staff Provider] - Ghanshyam Willard MD [Staff Provider] - <Markel Oh - Last Filed: 08/24/16 13:50> Provider - Provider Date of Admission: 07/22/16 13:48 Attending physician: Yvrose Pollack DO Hospital Course - Lab Results Lab Results: Most Recent Lab Values WBC 8.9 K/uL (4.8-10.8) 07/24/16 08:10 RBC 4.28 Mil/uL (4.40-5.90) L 07/24/16 08:10 Hgb 13.3 g/dL (12.0-18.0) 07/24/16 08:10 Hct 40.7 % (35.0-51.0) 07/24/16 08:10 MCV 95.0 fL (80.0-94.0) H 07/24/16 08:10 MCH 31.1 pg (27.0-31.0) H 07/24/16 08:10 MCHC 32.8 g/dL (33.0-37.0) L 07/24/16 08:10 RDW 13.5 % (11.5-14.5) 07/24/16 08:10 Plt Count 155 K/uL (130-400) 07/24/16 08:10 MPV 11.5 fL (7.2-11.7) 07/24/16 08:10 Neut % (Auto) 75.6 % (50.0-75.0) H 07/24/16 08:10 Lymph % (Auto) 11.9 % (20.0-40.0) L 07/24/16 08:10 [place] % (Auto) 7.8 % (0.0-10.0) 07/24/16 08:10 Eos % (Auto) 4.3 % (0.0-4.0) H 07/24/16 08:10 Baso % (Auto) 0.4 % (0.0-2.0) 07/24/16 08:10 Neut # 6.7 K/uL (1.8-7.0) 07/24/16 08:10 Lymph # 1.1 K/uL (1.0-4.3) 07/24/16 08:10 [place] # 0.7 K/uL (0.0-0.8) 07/24/16 08:10 Eos # 0.4 K/uL (0.0-0.7) 07/24/16 08:10 Baso # 0.0 K/uL (0.0-0.2) 07/24/16 08:10 PT 12.5 SECONDS (9.7-12.2) H 07/23/16 06:06 INR 1.1 07/23/16 06:06 APTT 31 SECONDS (21-34) 07/23/16 06:06 D-Dimer, Quantitative < 200 ng/mlDDU (0-243) 07/22/16 17:11 Sodium 145 mmol/L (132-148) 07/24/16 07:40 Potassium 3.4 mmol/L (3.6-5.2) L 07/24/16 07:40 Chloride 102 mmol/L (98-107) 07/24/16 07:40 Carbon Dioxide 35 mmol/L (22-30) H 07/24/16 07:40 Anion Gap 11 (10-20) 07/24/16 07:40 BUN 58 mg/dL (9-20) H 07/24/16 07:40 Creatinine 2.6 MG/DL (0.8-1.5) H 07/24/16 07:40 Est GFR ( Amer) 29 07/24/16 07:40 Est GFR (Non-Af Amer) 24 07/24/16 07:40 POC Glucose (mg/dL) 169 mg/dL (65-110) H 07/24/16 11:36 Random Glucose 108 mg/dL (75-110) 07/24/16 07:40 Hemoglobin A1c 6.5 % (4.2-6.5) 07/23/16 06:06 Calcium 9.8 mg/dl (8.6-10.4) 07/24/16 07:40 Phosphorus 2.7 mg/dL (2.5-4.5) 07/24/16 07:40 Magnesium 2.6 mg/dL (1.6-2.3) H 07/24/16 07:40 Total Bilirubin 0.6 mg/dL (0.2-1.3) 07/24/16 07:40 AST 25 U/L (17-59) 07/24/16 07:40 ALT 18 U/L (21-72) L 07/24/16 07:40 Alkaline Phosphatase 67 U/L (38-126) 07/24/16 07:40 Total Creatine Kinase 55 U/L (55-170) 07/23/16 01:10 CK-MB (Mass) 1.01 ng/mL (0.0-3.38) 07/23/16 01:10 Troponin I 0.0270 ng/mL (0.00-0.120) 07/22/16 13:21 Troponin I, Quant 0.0220 ng/mL (0.00-0.120) 07/23/16 01:10 NT-Pro-B Natriuret Pep 1170 pg/mL (0-900) H 07/22/16 17:11 Total Protein 7.0 g/dL (6.3-8.3) 07/24/16 07:40 Albumin 3.9 g/dL (3.5-5.0) 07/24/16 07:40 Globulin 3.1 gm/dL (2.2-3.9) 07/24/16 07:40 Albumin/Globulin Ratio 1.2 (1.0-2.1) 07/24/16 07:40 Triglycerides 107 mg/dL (0-149) 07/23/16 06:06 Cholesterol 92 mg/dL (0-199) 07/23/16 06:06 LDL Cholesterol Direct < 30 mg/dL (0-129) 07/23/16 06:06 HDL Cholesterol 37 mg/dL (30-70) 07/23/16 06:06 TSH 3rd Generation 1.34 mIU/L (0.46-4.68) 07/23/16 06:06 Attending/Attestation - Attestation I have personally seen and examined this patient.: Yes I have fully participated in the care of the patient.: Yes I have reviewed all pertinent clinical information, including history, physical exam and plan: Yes Notes (Text): Patient Seen and examined with the resident. Agree with the resident's evaluation, assessment and plan. 71 yo male with past medical hx CKD, HTN, DM, gout sent by industrial nurse for cardiac cath. revealed no new lesions.
[2016-07-24 14:08] VITALS: PULSE 60; O2SAT 93
--- NOTE | 2016-07-24 17:29 | CARD ---
APPROVED REPORT EXAM: Two-dimensional and M-mode echocardiogram with Doppler and color Doppler. Other Information Quality : GoodRhythm : NSR INDICATION Dyspnea Congestive Heart Failure COPD ABNORMAL STRESS TEST RISK FACTORS Obesity 2D DIMENSIONS LVOT Diameter1.6 (1.8-2.4cm) M-Mode DIMENSIONS RVDd1.43 (2.1-3.2cm)Left Atrium (MM)5.29 (2.5-4.0cm) IVSd0.87 (0.7-1.1cm)Aortic Root3.25 (2.2-3.7cm) LVDd5.68 (4.0-5.6cm)Aortic Cusp Exc.1.52 (1.5-2.0cm) PWd1.13 (0.7-1.1cm)FS (%) 29 % LVDs4.03 (2.0-3.8cm)LVEF (%)55 (>50%) Aortic Valve AoV Peak Xblkqack114.6cm/sAoV VTI87.1cmAO Peak GR.34mmHg LVOT Peak Htpcxlzc702.1cm/sLVOT VTI32.65cmAO Mean GR.19mmHg OPAL (VMAX)0.74nf4EUE (VTI)0.60zx2UF P 1/2 Ajal960iy Mitral Valve MV E Glcayktr713.0cm/sMV A Ixkhbunb285.0cm/sE/A ratio1.2 TDI E/Lateral E'0.0E/Medial E'0.0 Tricuspid Valve TR Peak Cbeehbah005ln/sTR Peak Gr.09kqRvVYGO73coBi LEFT VENTRICLE The left ventricle is normal size. There is normal left ventricular wall thickness. The left ventricular function is normal. The left ventricular ejection fraction is within the normal range. No regional wall motion abnormalities noted. The left ventricular diastolic function is inconclusive. No left ventricle thrombus noted on this study. There is no ventricular septal defect visualized. There is no left ventricular aneurysm. There is no mass noted in the left ventricle. RIGHT VENTRICLE The right ventricle is normal size. There is normal right ventricular wall thickness. The right ventricular systolic function is normal. ATRIA The left atrium size is normal. The right atrium size is normal. The interatrial septum is intact with no evidence for an atrial septal defect. AORTIC VALVE The aortic valve is calcifed, poorly seen and demonstrates reduced opening. Mild aortic regurgitation is present. Peak gradient is 30 mm Hg, aortic vavle area by the continuity equation is .9 cm2. There is no aortic valvular vegetation. MITRAL VALVE The mitral valve is normal in structure and function. There is no evidence of mitral valve prolapse. There is no mitral valve stenosis. There is no mitral valve regurgitation noted. TRICUSPID VALVE The tricuspid valve is normal in structure and function. There is no tricuspid valve regurgitation noted. There is no tricuspid valve prolapse or vegetation. There is no tricuspid valve stenosis. PULMONIC VALVE The pulmonary valve is normal in structure and function. There is no pulmonic valvular regurgitation. There is no pulmonic valvular stenosis. GREAT VESSELS The aortic root is normal in size. The ascending aorta is normal in size. The pulmonary artery is normal. The IVC is normal in size and collapses >50% with inspiration. PERICARDIAL EFFUSION The pericardium appears normal. There is no pleural effusion. <Conclusion> Normal LV EF. Aortic stenosis is noted. The valve is not well seen. Visually, is may be severe. However, the gradient is only30 mm HG, and this is not consitent with a vlave area of .9 cm2 Iin the setiing of normal LV EF). As the results are incongruent, a repeat limited study for valve area assessment is recommended.
--- NOTE | 2016-07-24 21:09 | CP.PCM.PN ---
Subjective - Date & Time of Evaluation Date of Evaluation: 07/24/16 Time of Evaluation: 14:00 - Subjective Subjective: SEN ON RENAL F/U S/P CARDIAC CATH .. LUCKILY RENAL FUNCTION IS OK WITHOUT DETERIORATION FEELS MUCH BETTER D/W DO RESIDENT .. PT CAN BI D/C TO C/O CURRENT MEDS TO SEE ME WED AT 4.00 PM TO REPEAT BNP CASE D/W PT , HIS AND HIS SON Objective - Vital Signs/Intake and Output Vital Signs (last 24 hours): Temp Pulse Resp BP Pulse Ox 98.6 F 60 20 139/86 93 L 07/24/16 07:38 07/24/16 13:48 07/24/16 07:38 07/24/16 07:38 07/24/16 13:48 - Labs Labs: 07/24/16 08:10 07/24/16 07:40 PT 12.5 SECONDS (9.7-12.2) H 07/23/16 06:06 INR 1.1 07/23/16 06:06 APTT 31 SECONDS (21-34) 07/23/16 06:06 Assessment and Plan - Assessment and Plan (Free Text) Assessment: CKD .. RENAL FUNCTION STABLE S/P C CATH .. RENAL FUNCTION OK P : D/C .. F/U AN OUT PT
--- NOTE | 2016-07-27 07:50 | PCM.HF ---
Heart Failure Core Measure - Heart Failure Ejection Fraction: 40 % or Greater MILAN Inhibitor Prescribed: No Contraindication/Reason for not providinN arb Beta-Karena Prescribed: None Contraindication/Reason for not providing: HEART BLOCK /BRADYCARDIA Angiotensin II Receptor Karena Prescribed: Yes AnticoagulationTherapy for Atrial Fibrillation/Atrialflutter: No Contraindication/Reason for not providing: NO HX OF AIB Aldosterone Antagonist Prescribed: No Contraindication/Reason for not providing: EF>45/ON TORESOMIDE Hydralazine Nitrate Prescribed: No Contraindication/Reason for not providing: EF>45 Implantable Cardioverter Defibrillator Therapy: No Contraindication/Reason for not providing: EF>45 Cardiac Resynchronization Therapy Prescribed: No Contraindication/Reason for not providing: EF>45 - Follow up Will be discharged to: Home Follow Up Date (must be within 7 days from discharge): 07/30/16 Follow Up Time: 09:00
== END 2016-07-24 14:44 | disposition home or self-care (01) ==
LOC: C.ER 12:44 → C.9E 13:48 → C.6T 14:11
PROVIDERS: ADMIT Hospitalist; ATTEND Hospitalist
DX: I25.10 Atherosclerotic heart disease of native coronary artery without angina pectoris (principal); I25.2 Old myocardial infarction; E11.40 Type 2 diabetes mellitus with diabetic neuropathy, unspecified; Z79.4 Long term (current) use of insulin; Z79.84 Long term (current) use of oral hypoglycemic drugs; I13.0 Hypertensive heart and chronic kidney disease with heart failure and stage 1 through stage 4 chronic kidney disease, or unspecified chronic kidney disease; I50.9 Heart failure, unspecified; N18.4 Chronic kidney disease, stage 4 (severe); E11.22 Type 2 diabetes mellitus with diabetic chronic kidney disease; E78.5 Hyperlipidemia, unspecified; E87.6 Hypokalemia; E88.89 Other specified metabolic disorders; G47.30 Sleep apnea, unspecified; Z87.891 Personal history of nicotine dependence; E66.01 Morbid (severe) obesity due to excess calories; Z68.39 Body mass index [BMI] 39.0-39.9, adult
CPT/HCPCS: 36415; 71010; 71020; 80053; 80061; 82948; 83036; 83735; 83880; 84100; 84443; 84484; 85025; 85378; 85610; 85730; 93005; 93306; 93458; 93970; 94660; 97110; 97162; 99284; C1769; C1887; G0378; G8978; G8979; G8980; J0456; J0696; J1644; J2250; J3010; J3480; J7050; J7070